=== PATIENT | female | born 1985 | race Hispanic/Latino ===

== ENCOUNTER 2019-01-12 19:18 | Observation (INO) | payer SELFPAY ==
[~2019-01-12 19:18] MED LIST: ISOVUE-370 76%-LOCM 1 ML ONE
[2019-01-12 19:52] LABS: #Monocytes 0.5 thou/uL (0.11-0.59); #Neutrophils 7.5 thou/uL (1.40-6.50); %Basophils 0.2 % (0.0-1.0); %Eosinophils 0.4 % (0.0-10.0); %Lymphocytes 19.9 % (21.0-51.0); %Monocytes 4.5 % (0.0-10.0); Hemoglobin 12.8 g/dL (12.0-16.0); Mean Corpuscular HGB CONC 33.4 g/dL (32.0-36.0); Mean Corpuscular Hemoglobin 27.8 pg (27.0-31.0); Mean Corpuscular Volume 83.2 fL (78.0-98.0); Platelet Count 307 thou/uL (130-400); RBC Distribution Width 12.4 % (11.5-14.5); White Blood Cell (WBC) Count 10.1 thou/uL (4.8-10.8)
[2019-01-12] MEDS ORDERED: Fentanyl 100 MCG/2 ML VIAL ONE (19:54)
[2019-01-12] MEDS ORDERED: Ketorolac Tromethamine 30 MG/ML VIAL ONE (19:55)
[2019-01-12] MEDS ORDERED: Ondansetron PF 4 MG/2 ML Vial ONE (19:55)
[2019-01-12 20:02] LABS: BHCG - Serum Negative (NEGATIVE); Pregs Control Background? CLEAR/WHITE (CLR/WHITE); Pregs Control Bar Appear? YES (CONTROL BAR)
[2019-01-12 20:13] LABS: ALT (SGPT) 266 U/L (8-55); AST (SGOT) 150 U/L (5-34); Albumin 4.2 g/dL (3.5-5.0); Alkaline Phosphatase 126 U/L (40-150); Anion Gap 16 mmol/L (10-20); BUN (Urea Nitrogen) 8 mg/dL (7.0-18.7); Bilirubin, Total 0.5 mg/dL (0.2-1.2); Calc. Creatinine Clearance 0 mL/min (70-130); Calcium 9.3 mg/dL (7.8-10.44); Carbon Dioxide 24 mmol/L (22-29); Chloride 100 mmol/L (98-107); Estimated GFR-MDRD Greater than 90; Globulin 2.7 g/dL (2.4-3.5); Glucose 264 mg/dL (70-105); Lipase 15 U/L (8-78); Potassium 3.5 mmol/L (3.5-5.1); Protein, Total 6.9 g/dL (6.0-8.3); Sodium 136 mmol/L (136-145)
[2019-01-12 20:14] LABS: Bilirubin Negative (Negative); Blood, Urine Negative (Negative); Clarity CLEAR (Clear); Glucose, Urine (Dipstick) >=1000 mg/dL (Negative); Leukocyte Negative (Negative); Nitrite Negative (Negative); Protein, Urine (Dipstick) Negative (Neg-Trace); Specific Gravity, Urine 1.021 (1.002-1.036); Urobilinogen 0.2 mg/dL (0.2-1.0); pH, Urine 5.5 (5.0-9.0)
--- NOTE | 2019-01-12 21:14 | CT ---
CONTRAST ENHANCED CT IMAGES ABDOMEN AND PELVIS: HISTORY: Abdominal pain. FINDINGS: The lung bases are unremarkable. No evidence of free intraperitoneal air seen. The liver and spleen are unremarkable. The gallbladder has been surgically removed. The pancreas is unremarkable. Adrenal glands and kidneys are unremarkable. The small bowel loops demonstrate no significant distention. There is an abnormally dilated appendix measuring up to 12 mm. Surrounding fat stranding is seen. Fin dings concerning for appendicitis. The colon is unremarkable. There is a prominent right ovarian cyst or cystic lesion. Correlate with follow-up elective sonograph y. IMPRESSION: Distended and inflamed appendix concerning for appendicitis. Findings discussed with Dr. Potter at 9:13 PM on 01/12/2019. Code CR Transcribed Date/Time: 01/12/2019 9:25 PM
[2019-01-12] MEDS ORDERED: Ondansetron PF 4 MG/2 ML Vial IVP PRN (21:36)
[2019-01-12] MEDS ORDERED: Morphine 4 MG/ML VIAL SLOW IVP PRN (21:36)
[2019-01-12] MEDS ORDERED: hydrALAZINE 20 MG/ML VIAL SLOW IVP PRN (21:36)
[2019-01-12] MEDS ORDERED: Ondansetron ODT 4 MG TAB PO PRN (21:36)
[2019-01-12] MEDS ORDERED: Ketorolac Tromethamine 30 MG/ML VIAL IVP PRN (21:39)
[2019-01-12] MEDS ORDERED: Ketorolac Tromethamine 30 MG/ML VIAL IVP SCH (21:45)
[2019-01-12] MEDS ORDERED: Acetaminophen 1,000 MG in Premix Bag 1 BAG IVPB SCH (21:45)
--- NOTE | 2019-01-12 21:59 | HP ---
HISTORY OF PRESENT ILLNESS: Katelyn Carrillo is a 33-year-old female who has had a several-hour history of right lower quadrant pain, presents to the emergency room, evaluated, found to have a white count of 10, hemoglobin of 12, comprehensive metabolic profile normal with mildly elevated transaminases. She underwent a CAT scan of the abdomen and pelvis revealing consistent with appendicitis. The patient has been admitted tonight for intravenous antibiotics and fluids and we will plan laparoscopic video appendectomy tomorrow. ALLERGIES: NONE. SOCIAL HISTORY: Tobacco, none. Alcohol, rarely. MEDICATIONS: None routinely. PAST MEDICAL HISTORY: Noncontributory. PAST SURGICAL HISTORY: Laparoscopic cholecystectomy. REVIEW OF SYSTEMS: A 10-point noncontributory. PHYSICAL EXAMINATION: VITAL SIGNS: Blood pressure 128/74, respiratory rate 18, heart rate 78. HEAD, EARS, EYES, NOSE AND THROAT: Unremarkable. LUNGS: Clear to auscultation. CARDIAC: Regular rate and rhythm without murmur or gallop. ABDOMEN: Soft, mild tenderness in right lower quadrant. No guarding or rebound. Positive Montes's. Positive Rovsing sign. EXTREMITIES: Unremarkable. LABORATORY DATA: As noted. ASSESSMENT: Acute appendicitis. PLAN: Laparoscopic video appendectomy tomorrow morning. Job ID: [id number]
[2019-01-12] MEDS ORDERED: Morphine 2 MG/ML SYRINGE ONE (23:32)
[2019-01-12 23:58] VITALS: BMI 32.1
[2019-01-13] MEDS: Piperacillin/Tazobactam 3.375 GM in Sodium Chloride 0.9% 100 ML IVPB SCH ×3 (00:01→08:06)
[2019-01-13] MEDS: Sodium Chloride 0.9% 1,000 ML IV SCH ×2 (00:20→08:05)
[2019-01-13] MEDS: Acetaminophen 1,000 MG in Premix Bag 1 BAG IVPB PRN ×2 (00:20→06:21)
[2019-01-13] MEDS: Morphine 4 MG/ML VIAL SLOW IVP PRN ×2 (02:32→06:28)
[2019-01-13] MEDS ORDERED: Ondansetron PF 4 MG/2 ML Vial ONE ×2 (07:58→12:59)
[2019-01-13] MEDS ORDERED: Bupivacaine HCl 0.5%/Epinephrine 1:200,000/PF 30 ml Vial ONE (08:36)
[2019-01-13] MEDS ORDERED: Fentanyl 100 MCG/2 ML VIAL ONE ×3 (08:39→10:19)
[2019-01-13] MEDS ORDERED: SUGAMMADEX SODIUM 200 MG/2 ML VIAL ONE (09:39)
[2019-01-13] MEDS ORDERED: Acetaminophen 500 MG TAB PO PRN (09:49)
[2019-01-13] MEDS ORDERED: traMADol HCl 50 MG TAB PO PRN ×2 (09:49)
[2019-01-13] MEDS ORDERED: Ibuprofen 600 MG TAB PO PRN (09:49)
[2019-01-13] MEDS ORDERED: Ondansetron HCl/PF 4 MG/2 ML Vial IVP PRN (10:01)
[2019-01-13] MEDS ORDERED: Promethazine HCl 25 MG/ML VIAL IM PRN (10:01)
[2019-01-13 11:05] VITALS: BP 109/71; TEMP 98.7
--- NOTE | 2019-01-13 11:37 | OP ---
DATE OF PROCEDURE: 01/13/2019 PREOPERATIVE DIAGNOSIS: Acute appendicitis. POSTOPERATIVE DIAGNOSIS: Acute appendicitis. PROCEDURE PERFORMED: Laparoscopic video appendectomy. ANESTHESIA: General, local 0.5% Marcaine with epinephrine 30 mL. DESCRIPTION OF PROCEDURE: The patient was taken to the operating room, where under general anesthesia, Rosales catheter placed at the beginning of the procedure, removed at the end. Abdomen was clipped of hair, prepared with ChloraPrep and draped in routine fashion. Local anesthetic 0.5% Marcaine with epinephrine was infiltrated in the skin and subcutaneous tissue about each port site. Infraumbilical incision was made. Pneumoperitoneum to 15 mmHg obtained with a Veress needle, replaced with a 5 port, laparoscope inserted. Right lateral subcostal incision was made and suprapubic incision was made, and a 5 mm and a 12 mm port placed respectively under laparoscopic visualization. Appendix acutely inflamed. Mesoappendix was taken down with the LigaSure to the stump of the appendix, divided the cecal stump with an Endo EMELIA blue load stapler. Appendix removed and submitted to Pathology. Good hemostasis was ensured. Area irrigated. Irrigant and pneumoperitoneum evacuated. Suprapubic fascia was approximated with 0 Vicryl suture. Skin incision was approximated with interrupted subdermal 4-[address] [place] glue applied. Job ID: [id number]
[2019-01-13] MEDS ORDERED: Lidocaine 2% PF 5 ML VIAL ONE (12:59)
[2019-01-13] MEDS ORDERED: Dexamethasone 20 MG/5 ML VIAL ONE (12:59)
[2019-01-13] MEDS ORDERED: PROPOFOL 200 MG/20 ML VIAL ONE (12:59)
[2019-01-13] MEDS ORDERED: Rocuronium Bromide 10 MG/ML (10ML VIAL) ONE (12:59)
[2019-01-13] MEDS ORDERED: Enoxaparin Sodium 40 MG/0.4 ML SYRINGE SC SCH (21:00)
--- NOTE | 2019-01-14 09:26 | DIS ---
DATE OF ADMISSION: 01/12/2019 DATE OF DISCHARGE: 01/13/2019 HOSPITAL COURSE: Katelyn Carrillo, 33-year-old, female presents to the emergency room with a 24-hour history of abdominal pain. Exam and CAT scan confirms appendicitis. She was hospitalized overnight with IV fluids an antibiotics, taken to the operating room the next day, 01/13/2019, for a laparoscopic video appendectomy after which she was discharged home. Follow up in my office in 2 to 3 weeks. Diet and activity as tolerated. No lifting restrictions. Home with Ultra p.r.n. pain and Zofran as needed. Job ID: [id number]
== END 2019-01-13 14:37 | disposition home or self-care (01) ==
LOC: ERS 19:18 → SURG A 21:36
PROVIDERS: ADMIT Specialist; ATTEND Specialist
PROC: 0DTJ4ZZ Resection of Appendix, Percutaneous Endoscopic Approach (ICD-10-PCS; principal; 2019-01-13)
DX: K35.80 Unspecified acute appendicitis (principal)
CPT/HCPCS: 36415; 74177; 80053; 81003; 83690; 84703; 85025; 88304; 96361; 96365; 96366; 96375; 96376; G0378; J0131; J0670; J1100; J1885; J2001; J2270; J2405; J2543; J2704; J3010; J3490

== ENCOUNTER 2019-05-04 15:30 | Inpatient (IN) | payer SELFPAY ==
[2019-05-04] MEDS ORDERED: Dextrose 5% in Water 1,000 ML IV PRN (18:50)
[2019-05-04] MEDS ORDERED: Insulin Regular 300 UNITS/3 ML VIAL SC PRN (18:50)
[2019-05-04] MEDS ORDERED: Acetaminophen 325 MG TAB PO PRN (18:50)
[2019-05-04] MEDS ORDERED: Dextrose 50% Abboject 50 ML SYRINGE SLOW IVP PRN (18:50)
[2019-05-04] MEDS ORDERED: Ondansetron ODT 4 MG TAB PO PRN (18:50)
[2019-05-04] MEDS ORDERED: Ondansetron PF 4 MG/2 ML Vial IVP PRN (18:50)
[2019-05-04] MEDS ORDERED: Calcium Carbonate 500 MG ChewTAB PO PRN (18:50)
[2019-05-04] MEDS ORDERED: Aspirin 81 mg Enteric Coated Tablet PO SCH (19:15)
[2019-05-04 19:50] LABS: ALT (SGPT) 24 U/L (8-55); AST (SGOT) 19 U/L (5-34); Albumin 4.2 g/dL (3.5-5.0); Alkaline Phosphatase 83 U/L (40-150); Anion Gap 10 mmol/L (10-20); BUN (Urea Nitrogen) 6 mg/dL (7.0-18.7); Bilirubin, Total 0.3 mg/dL (0.2-1.2); Calc. Creatinine Clearance 0 mL/min (70-130); Calcium 9.8 mg/dL (7.8-10.44); Carbon Dioxide 28 mmol/L (22-29); Chloride 103 mmol/L (98-107); Estimated GFR-MDRD Greater than 90; Glucose 140 mg/dL (70-105); Potassium 4.1 mmol/L (3.5-5.1); Sodium 137 mmol/L (136-145)
--- NOTE | 2019-05-04 19:51 | PDOC.FPROB ---
FMR OB H&P: HPI - History of Present Illness Chief Complaint: Newly Dx Pre-Gestational Diabetes History of Present Illness: 33yo at 12.2wks by 5.5wk and 9.5wk US (EDC 11/14/19) presenting as direct admit from [facility] for newly diagnosed uncontrolled pregestational diabetes. Pt was sent to routine labs and found to have A1C 10.0 on 04/30/19 and finger stick BG of >200. Pt currently asx. No history of GDM or pGDM. Denies any vaginal bleeding or discharge, no LOF, no contractions, no edema, HODGE, SOB, or dysuria. Primary Care Physician: Juliann FMR OB H&P: Current - Care : 4 Para: [id number] Gestational age: 12.2 Due date: 11/14/2019 Dating Criteria: 5.5 wk sono Course/Complications: Newly dx preg-gestational Diabetes - OB Labs Blood type: O RH: positive Antibody Screen: negative HIV: negative RPR: negative HepBsAg: negative Rubella: immune Quad screen: unknown Urine drug screen: not done Gonorrhea: unknown Chlamydia: unknown A1c: 10.0 GBS: unknown - First Trimester Ultrasound First trimester: activity noted and Cardiac motion noted Dates c/w 5.5 week sono FMR OB H&P: History - Past Medical History PMH: None. No chronic medical conditions outside of . - OB History OB History: 3 previous term . No NICU states, uncomplicated pregnancies and deliveries. - CAUSTIC PREPARER History CAUSTIC PREPARER History: Needs pap. - Surgical History Sx History: Cholecystectomy 2008, Appendectomy December 2018 - Social History Social History: Denies any EtOh, smoking or illicit drug use. Lives in [place] with , and 3 children. No pets at home. - Family History Family History: Uncles w/ diabetes. Mom with gDM. FMR OB H&P: Medications - Current Home Medications: Medication Instructions Recorded Confirmed Type Pnv No.95/Ferrous Fum/Folic AC 1 each PO DAILY 05/04/19 05/04/19 History [ Multivitamin Tablet] Allergies/Adverse Reactions: Allergies Allergy/AdvReac Type Severity Reaction Status Date / Time No Known Allergies Allergy Verified 05/04/19 22:27 FMR OB H&P: ROS - Review of Systems General: denies: fever/chills, weight/appetite/sleep changes, night sweats, fatigue Eyes: denies: eye pain, vision changes ENT: denies: nasal congestion, rhinorrhea, sinus pain/pressure Cardiovascular: denies: chest pain, palpitation, edema Respiratory: denies: cough, congestion, shortness of breath Gastrointestinal: denies: abdominal pain, vomiting, diarrhea, constipation Genitourinary (Female): denies: incontinence, dysuria, hematuria, polyuria, vaginal discharge, vaginal bleeding, contractions, vaginal pressure Musculoskeletal: denies: pain, tenderness Neurologic: denies: numbness, weakness Integumentary: denies: itching, rash Hematologic/Lymphatic: denies: prolonged or excessive bleeding Psychological: denies: depression, anxiety FMR OB H&P: Vital Signs - Maternal Vital signs: HR 94, BP 138/78, RR 18, T 98.9 Tried to listen to Heart tones with handheld doppler but unable 2/2 gestational age. FMR OB H&P: Physical Exam - Physical Exam General: NAD, awake, alert and oriented HEENT: EOMI, MMM Neck: supple, trachea midline Heart: RRR, normal S1/S2, no murmurs/rubs/gallops, pulses present, no edema General: CTAB, no respiratory distress, good air movement, no rales/rhonchi, no wheezing Abdomen: soft, gravid, non-tender, bowel sound present Musculoskeletal: normal gait and station, pulses present Neurological: no focal deficit Skin: no rash Lymphatic: no unusual bruising or bleeding Psychiatric: intact recent and remote memory, good judgement and insight, normal mood and affect FMR OB H&P: A/P - Problem List (1) Pregestational diabetes mellitus, modified White class B Current Visit: Yes Status: Acute Code(s): O24.319 - UNSP PRE-EXISTING DIABETES IN , UNSP TRIMESTER (2) First trimester Current Visit: Yes Status: Acute Code(s): Z34.91 - ENCNTR FOR SUPRVSN OF NORMAL PREG, UNSP, FIRST TRIMESTER Disposition: 33yo at 12.2wks by 5.5wk and 9.5wk US (EDC 11/14/19) presenting as direct admit from [facility] for newly diagnosed uncontrolled pregestational diabetes with A1C 10 on 04/30/19. #Uncontrolled Pregestational DMII, White Class B, newly diagnosed - A1C 10% - Will start regular insulin 13u prior to breakfast and 9u prior to dinner - Will start NPH 26U QAM and 9U QHS - Will check fasting AM glucose and 2 hour post prandial and adjust above regime as needed. - Encourage low carb snack for snack prior to bed - Placed on mild SSI - Will check TSH and obtain 24hr urine protein - Will need detailed anatomy scan with MFM. growth scans and weekly NST/ BPP starting at 32 weeks. - Will need outpt eye exam for newly diagnosed DM - Started 81mg ASA - Pipeline Gang Supervisor and DM education in AM #Obesity in - BMI 40 - Counseled on expected wt gain during this <20lbs - cook chill technician consulted #IUP, first trimester - management per above - continue routine care Diet: CC VTE: Ambulation [facility] - Attending - Attending Attestation Date/Time: 05/04/19 8614 I personally evaluated the patient and discussed the management with Dr. Lyn Luciano on 05/04/2019 I agree with the History, Examination, Assessment and Plan documented above with any addition or exceptions noted below - 33yo at 12.2wks by 5.5wk and 9.5wk US (EDC 11/14/19) presenting as direct admit from [facility] for newly diagnosed pregestational diabetes. Pt was sent to routine labs and found to have A1C 10.0 on 04/30/19 and finger stick BG of >200. No h/o GDM in prior pregnancies or macrosomic infants. (+)FH of uncle with type 2 DM. Denies any polyuria/polydipsia. PMH/PSH/Meds/SH reviewed and agree with resident's documentation. T98.9 P94 BP 138/78 97% RA Exam repeated by me and agree with resident's findings. Labs: Iw=006, K=4.1, Fs=640, CO2=28, BUN/Cr=6/0.64, Gluc= 140, AST/ALT=19/24, TSH=1.2316 A/P: 1) Newly diagnosed pregestational DM - started on ADA diet; cook chill technician consult placed for education. Monitor fasting and post-prandial glucose. Sliding scale to determine need for insulin.
[2019-05-04 20:01] LABS: Globulin 3.1 g/dL (2.4-3.5); Protein, Total 7.2 g/dL (6.0-8.3)
[2019-05-04] MEDS: Insulin Regular 300 UNITS/3 ML VIAL SC SCH (20:26)
[2019-05-04] MEDS ORDERED: NPH, Human Insulin Isophane 300 UNIT/3 ML VIAL SC SCH (21:00)
[2019-05-04] MEDS ORDERED: Sodium Chloride 0.9% 10 ML ONE (21:40)
[2019-05-05 06:21] LABS: Anion Gap 11 mmol/L (10-20); BUN (Urea Nitrogen) 6 mg/dL (7.0-18.7); Calc. Creatinine Clearance 176 mL/min (70-130); Calcium 9.2 mg/dL (7.8-10.44); Carbon Dioxide 24 mmol/L (22-29); Chloride 102 mmol/L (98-107); Estimated GFR-MDRD Greater than 90; Glucose 152 mg/dL (70-105); Potassium 3.4 mmol/L (3.5-5.1); Sodium 134 mmol/L (136-145)
--- NOTE | 2019-05-05 07:04 | PDOC.OBAPN ---
FMR OB AP PN: Sub - Interval History Hospital Day: 1 Chief Complaint: Uncontrolled pregestational DMII new dx Indentification: 33yo at 12.3wks by 5.5wk and 9.5wk US (EDC 11/14/19). FMR OB AP PN: Obj - Maternal Vital signs: BP: 106/68 HR: 98.5 RR: 85 Tmax: 16 Pox: 97% on RA Wt: 82kg - Urine output I&O: 05/04/19 05/05/19 05/06/19 06:59 06:59 06:59 Intake Total 490 Output Total 1150 Balance -660 FMR OB AP PN: Exam - Physical Exam General: NAD, awake, alert and oriented HEENT: normocephalic and atraumatic, MMM, conjunctiva clear Neck: supple, trachea midline Heart: RRR, no murmurs/rubs/gallops General: CTAB, no respiratory distress Abdomen: soft, non-tender Musculoskeletal: pulses present, no misalignment/asymmetry, no atrophy Neurological: no focal deficit Skin: no rash, good tugor Psychiatric: intact recent and remote memory, good judgement and insight, normal mood and affect FMR OB AP PN: Data - Labs Lab results: Laboratory Results - last 24 hr 05/04/19 05/04/19 05/04/19 19:22 19:22 23:07 Sodium 137 Potassium 4.1 Chloride 103 Carbon Dioxide 28 Anion Gap 10 BUN 6 L Creatinine 0.64 Estimated GFR (MDRD) Greater than 90 Glucose 140 H POC Glucose 110 Calcium 9.8 Total Bilirubin 0.3 AST 19 ALT 24 Alkaline Phosphatase 83 Serum Total Protein 7.2 Albumin 4.2 Globulin 3.1 Albumin/Globulin Ratio 1.4 TSH 3rd Generation 1.2316 05/05/19 05/05/19 05:45 05:47 Sodium 134 L Potassium 3.4 L Chloride 102 Carbon Dioxide 24 Anion Gap 11 BUN 6 L Creatinine 0.60 Estimated GFR (MDRD) Greater than 90 Glucose 152 H POC Glucose 142 H Calcium 9.2 Total Bilirubin AST ALT Alkaline Phosphatase Serum Total Protein Albumin Globulin Albumin/Globulin Ratio TSH 3rd Generation FMR OB AP PN: A/P Disposition: 33yo at 12.3wks by 5.5wk and 9.5wk US (EDC 11/14/19) presenting as direct admit from [facility] for newly diagnosed uncontrolled pregestational diabetes Subjective: No overnight events. Slept well. Had a salad around 8:30pm last night when she arrived at her room. No evening snack. Reports she eats a lot of corn tortillas and sometimes flour tortillas, rice and beans for meals. Uncontrolled Pregestational DMII, White Class B, newly diagnosed - A1C 10% - Continue regular insulin 13u prior to breakfast & 9u prior to dinner - Continue NPH 26U QAM and increase NPH qHS from 9U to 11U - Continue to monitor fasting AM glucose & 2 hour post prandial. - Encourage low carb snack for snack prior to bed - Collecting 24hr urine protein. TSH nml - Will need detailed anatomy scan with MFM. growth scans and weekly NST/ BPP starting at 32 weeks. - Will need detailed eye exam - Continue daily ASA 81mg - Lever Operator counseled and DM education Obesity - BMI 40 - Counseled on expected wt gain during this <20lbs - Lever Operator consulted 1T sIUP - Continue routine care - Continue PNV Discussion: Date/Time: 05/05/19 0701 This H&P was discussed with Dr. Palmer who agree with the above documentation and plan.
[2019-05-05] MEDS ORDERED: Insulin Regular 300 UNITS/3 ML VIAL SC SCH (07:30)
[2019-05-05] MEDS ORDERED: NPH, Human Insulin Isophane 300 UNIT/3 ML VIAL SC SCH ×2 (08:00→21:00)
[2019-05-05] MEDS: Prenatal Vitamin 1 TAB PO SCH (10:55)
[2019-05-05] MEDS: Aspirin 81 mg Enteric Coated Tablet PO SCH (10:55)
[2019-05-05] MEDS: Insulin Regular 300 UNITS/3 ML VIAL SC SCH (19:01)
[2019-05-05 20:38] LABS: Urine Total Volume 2350 mL (600-1600)
[2019-05-05 20:58] LABS: Protein, Urine Less than 10 mg/dL (1-14)
[2019-05-05] MEDS ORDERED: HumaLOG 300 UNITS/3 ML VIAL SC PRN (21:57)
[2019-05-05] MEDS: Insulin Regular 300 UNITS/3 ML VIAL SC PRN (22:12)
[2019-05-06] MEDS ORDERED: NPH, Human Insulin Isophane 300 UNIT/3 ML VIAL SC SCH ×3 (06:42→21:00)
--- NOTE | 2019-05-06 06:49 | PDOC.FM ---
- Subjective Subjective: No overnight events. Feeling well. Met with karate instructor yesterday. Interested in diabetic education and had many questions about carbs and meals. She has been preforming her own glucose checks and insulin injections. Denies any pain, n/v. No complaints. - Objective MAR Reviewed: Yes Vital Signs & Weight: Vital Signs (12 hours) Temp Pulse Resp BP Pulse Ox 05/06/19 06:29 98.5 F 85 16 103/54 L 05/05/19 19:54 98.2 F 85 20 114/55 L 97 Weight Weight 82.1 kg I&O: 05/04/19 05/05/19 05/06/19 06:59 06:59 06:59 Intake Total 490 Output Total 1150 Balance -660 Result Diagrams: 05/05/19 05:45 Phys Exam - Physical Examination Constitutional: NAD HEENT: moist MMs Neck: supple Respiratory: no wheezing, clear to auscultation bilateral Cardiovascular: RRR, no significant murmur Gastrointestinal: soft, non-tender, positive bowel sounds Musculoskeletal: no edema, pulses present Neurological: non-focal, moves all 4 limbs Psychiatric: normal affect, A&O x 3 Skin: no rash, normal turgor Dx/Plan (1) First trimester Code(s): Z34.91 - ENCNTR FOR SUPRVSN OF NORMAL PREG, UNSP, FIRST TRIMESTER Status: Acute (2) Pregestational diabetes mellitus, modified White class B Code(s): O24.319 - UNSP PRE-EXISTING DIABETES IN , UNSP TRIMESTER Status: Acute - Plan Plan: Uncontrolled Pregestational DMII, White Class B, newly diagnosed - A1C 10% - Adjusted regular insulin to 16u prior to breakfast & 11u prior to dinner - Adjusted NPH 29U QAM and increase NPH qHS to 13 - Continue to monitor fasting AM glucose & 2 hour post prandial. - Encourage low carb snack for snack prior to bed - 24hr urine protein <10. TSH nml - Will need detailed anatomy scan with MFM. growth scans and weekly NST/ BPP starting at 32 weeks. - Will need detailed eye exam - Continue daily ASA 81mg - Bench Patternmaker Metal counseled and DM education Obesity - BMI 40 - Counseled on expected wt gain during this <20lbs - Bench Patternmaker Metal consulted 1T sIUP - Continue routine care - Continue PNV Dispo: Possibly late tonight if improvement in BG throughout the day.
[2019-05-06] MEDS ORDERED: Insulin Regular 300 UNITS/3 ML VIAL SC SCH ×2 (07:30→16:30)
[2019-05-06] MEDS: Aspirin 81 mg Enteric Coated Tablet PO SCH (08:41)
[2019-05-06] MEDS: Prenatal Vitamin 1 TAB PO SCH (08:41)
[2019-05-06] MEDS: Insulin Regular 300 UNITS/3 ML VIAL SC PRN ×3 (11:10→21:21)
--- NOTE | 2019-05-06 16:54 | EKG ---
Test Reason : STAT Blood Pressure : / mmHG Vent. Rate : 073 BPM Atrial Rate : 073 BPM P-R Int : 114 ms QRS Dur : 086 ms QT Int : 402 ms P-R-T Axes : 016 033 013 degrees QTc Int : 442 ms Normal sinus rhythm Normal ECG No previous ECGs available Confirmed by DR. Ynf RUDOLPH ([id number]) on 05/06/2019 4:54:42 PM Referred By: Confirmed By:DR. Yfn RUDOLPH
--- NOTE | 2019-05-07 06:59 | PDOC.FM ---
- Subjective Subjective: Feeling well this morning. No overnight events. Denies abdominal pain, vaginal bleeding. Has been doing her own glucose checks and insulin injections. - Objective MAR Reviewed: Yes Vital Signs & Weight: Vital Signs (12 hours) Temp Pulse Resp BP Pulse Ox 05/07/19 04:00 98.3 F 87 16 98/53 L 97 05/07/19 00:10 98.5 F 71 16 99/56 L 96 05/06/19 19:54 98.9 F 79 16 111/56 L 97 Weight Weight 82.1 kg I&O: 05/05/19 05/06/19 05/07/19 06:59 06:59 06:59 Intake Total 490 Output Total 1150 Balance -660 Result Diagrams: 05/05/19 05:45 Phys Exam - Physical Examination Constitutional: NAD HEENT: moist MMs Neck: supple Respiratory: no wheezing, clear to auscultation bilateral Cardiovascular: RRR, no significant murmur Gastrointestinal: soft, non-tender Musculoskeletal: no edema, pulses present Neurological: moves all 4 limbs Psychiatric: normal affect, A&O x 3 Skin: no rash, normal turgor Dx/Plan (1) First trimester Code(s): Z34.91 - ENCNTR FOR SUPRVSN OF NORMAL PREG, UNSP, FIRST TRIMESTER Status: Acute (2) Pregestational diabetes mellitus, modified White class B Code(s): O24.319 - UNSP PRE-EXISTING DIABETES IN , UNSP TRIMESTER Status: Acute - Plan Plan: Uncontrolled Pregestational DMII, White Class B, newly diagnosed - A1C 10% - Adjusted regular insulin to 19u prior to breakfast & 13u prior to dinner - Adjusted NPH 33U QAM and increase NPH qHS to 15U - Continue to monitor fasting AM glucose & 2 hour post prandial. - Encourage low carb snack for snack prior to bed - 24hr urine protein <10. TSH nml - Will need detailed anatomy scan with MFM. growth scans and weekly NST/ BPP starting at 32 weeks. - Will need detailed eye exam - Continue daily ASA 81mg - Professor Of Anthropology counseled and DM education Obesity - BMI 40 - Counseled on expected wt gain during this <20lbs - Professor Of Anthropology consulted 1T sIUP - Continue routine care - Continue PNV
[2019-05-07] MEDS ORDERED: Insulin Regular 300 UNITS/3 ML VIAL SC SCH ×2 (07:30→16:30)
[2019-05-07] MEDS ORDERED: NPH, Human Insulin Isophane 300 UNIT/3 ML VIAL SC SCH ×2 (07:58→08:00)
[2019-05-07] MEDS: Prenatal Vitamin 1 TAB PO SCH (08:12)
[2019-05-07] MEDS: Aspirin 81 mg Enteric Coated Tablet PO SCH (08:12)
[2019-05-07] MEDS: Insulin Regular 300 UNITS/3 ML VIAL SC PRN (10:35)
[2019-05-07 12:14] VITALS: BP 109/65; TEMP 97.8
--- NOTE | 2019-05-08 05:27 | DIS ---
DATE OF ADMISSION: 05/04/2019 DATE OF DISCHARGE: 05/07/2019 CONSULTS: None. PROCEDURES: None. PRIMARY DIAGNOSES: 1. Uncontrolled gestational type 2 diabetes, newly diagnosed White class B. 2. Obesity. 3. First-trimester single intrauterine . DISCHARGE MEDICATIONS: 1. Aspirin 81 mg daily. 2. Insulin NPH 15 at bedtime. 3. NPH 33 units at 0800. 4. Regular insulin 19 units at 0730. 5. Regular insulin 13 units at 1630. 6. vitamin. DISCONTINUED MEDICATIONS: None. HISTORY OF PRESENT ILLNESS AND HOSPITAL COURSE: Ms. Carrillo is a 33-year-old G4, P3-0-0-3 at 12.4 weeks by 5.5 week and 9.5 week ultrasound. Estimated due date 11/14/2019. The patient of [place] [facility] was found to have a hemoglobin A1c at 10%. Patient has no known history of diabetes. She was directly admitted to start insulin and to titrate. She was given education on diabetes as well as diabetic diet. She was able to learn how to administer her own insulin and check her glucose fasting and 2-hour postprandials. Her blood glucoses were fairly well controlled at discharge with a normal fasting of 101, abnormal 2-hour postprandial breakfast 181 (this was one of the higher 2-hour breakfast postprandials), and 2-hour postprandial lunch of 117. Discussed blood glucose goals with the patient. She expressed understanding. Recommended close followup to further titrate insulin. DISPOSITION: Stable. DISCHARGE INSTRUCTIONS: 1. Location: Home. 2. Diet: Carb consistent. 3. Activity: No restrictions. 4. Followup: With Dr. Humphreys, [place] [facility] within 1 week. Job ID: [id number]
[2019-05-08] MEDS ORDERED: NPH, Human Insulin Isophane 300 UNIT/3 ML VIAL SC SCH ×2 (08:00→15:00)
== END 2019-05-07 16:12 | disposition home or self-care (01) | DRG 833 ==
LOC: EDSTATUS 15:31 → PREOBSVTOIN 18:35 → OBSVTOIN 18:37 → 3SE 18:37
PROVIDERS: ADMIT Family Medicine; ATTEND Family Medicine
DX: O24.419 Gestational diabetes mellitus in pregnancy, unspecified control (principal); O99.211 Obesity complicating pregnancy, first trimester; E66.9 Obesity, unspecified; Z3A.12 12 weeks gestation of pregnancy
CPT/HCPCS: 36415; 36416; 80048; 80053; 84156; 84443; 93005; 93010; J1815

== ENCOUNTER 2019-06-11 19:21 | Inpatient (IN) | payer OTHER, SELFPAY ==
[2019-06-11 20:02] VITALS: BMI 34.9
[2019-06-11] MEDS ORDERED: Ondansetron PF 4 MG/2 ML Vial IVP PRN (20:29)
[2019-06-11] MEDS ORDERED: Promethazine HCl 25 MG/ML VIAL IM PRN (20:29)
[2019-06-11] MEDS ORDERED: Acetaminophen 500 MG TAB PO PRN (20:29)
[2019-06-11] MEDS ORDERED: FLU VACC QS2019-20(6MOS UP)/PF 60 MCG/0.5 ML SYRINGE IM ONE (21:00)
--- NOTE | 2019-06-11 21:21 | PDOC.OBTPN ---
FMR OB Triage PN:Sub - Interval History Chief Complaint: IUFD Indentification: 33yo FMR OB Triage PN:Obj - Maternal Vital signs: BP: [] HR: [] RR: [] Tmax: [] Pox: []% on [] Wt: [] - Heart Tones Baseline: 0 Variability: absent - Pain Management Pain scale: 0 FMR OB Triage PN:Exam - Physical Exam General: NAD, awake, alert and oriented HEENT: normocephalic and atraumatic, EOMI, grossly normal vision, grossly normal hearing Neck: FROM Heart: RRR General: no respiratory distress, good air movement, no wheezing Abdomen: soft, gravid, non-tender Musculoskeletal: FROM in all four extremities Neurological: cranial nerves II through XII intact Skin: no rash, no jaundice Lymphatic: no unusual bruising or bleeding, no purpura Psychiatric: intact recent and remote memory, good judgement and insight, normal mood and affect FMR OB Triage PN:A/P - Problem List (1) Intrauterine before 20 weeks of gestation Current Visit: Yes Status: Acute Code(s): O02.1 - MISSED (2) Second trimester Current Visit: Yes Status: Acute Code(s): Z34.92 - ENCNTR FOR SUPRVSN OF NORMAL PREG, UNSP, SECOND TRIMESTER (3) Pregestational diabetes mellitus, modified White class B Current Visit: No Status: Acute Code(s): O24.319 - UNSP PRE-EXISTING DIABETES IN , UNSP TRIMESTER Discussion: Date/Time: 06/11/192119 This H&P was discussed with [] and [] who agree with the above documentation and plan.
--- NOTE | 2019-06-11 21:29 | PDOC.FPROB ---
FMR OB H&P: HPI - History of Present Illness Chief Complaint: IUFD Indentification: 33yo History of Present Illness: 33yo at 17.5wks by 5.5wk and 9.5wk US (EDC 11/14/19) presenting to L&D for induction of labor for IUFD. [place] [facility] [place] At which time heart tones could not be identified. Pt had a follow up US while there which confirmed not cardiac activity and no movement. Pt denied any inciting events including trauma, recent illness, vaginal bleeding/discharge. She did note that she was recently diagnosed with pregestational diabetes and started on insulin after her A1c was found to be ~ 10. Denies any fever, chills, abdominal pain, contractions at this time. Primary Care Physician: Dr. Humphreys FMR OB H&P: Current - Care : G4 Para: [id number] Gestational age: 17.5 Due date: 11/14/19 Dating Criteria: 5.5wk and 9.5wk US Course/Complications: Pregestational DM - A1c 10 - OB Labs Blood type: O RH: positive Antibody Screen: negative HIV: negative RPR: negative HepBsAg: negative Rubella: immune A1c: 10 FMR OB H&P: History - Past Medical History PMH: Pregestational DM White Class B - OB History OB History: 3 term vaginal deliveries - Surgical History Sx History: Cholecystectomy, appendectomy - Social History Social History: No alcohol, tobacco, or illicit drugs FMR OB H&P: Medications - Current Home Medications: Medication Instructions Recorded Confirmed Type Aspirin [Ecotrin Low Strength] 81 mg PO DAILY #30 tab 05/06/19 06/11/19 Rx Vitamin 1 tab PO DAILY tab 05/06/19 06/11/19 Rx NPH, Human Insulin Isophane 15 unit SC HS #1 vial 05/07/19 06/11/19 Rx [HumuLIN N] Insulin Regular [HumuLIN R Vial] 15 unit SC 1630 06/11/19 06/11/19 History Insulin Regular [HumuLIN R Vial] 21 unit SC 0730 06/11/19 06/11/19 History NPH, Human Insulin Isophane 37 unit SC 0800 06/11/19 06/11/19 History [HumuLIN N] Allergies/Adverse Reactions: Allergies Allergy/AdvReac Type Severity Reaction Status Date / Time No Known Allergies Allergy Verified 05/04/19 22:27 FMR OB H&P: ROS - Review of Systems General: denies: fever/chills, weight/appetite/sleep changes Eyes: denies: vision changes, double vision Cardiovascular: denies: chest pain, edema Respiratory: denies: cough, shortness of breath Gastrointestinal: denies: abdominal pain, nausea, vomiting Genitourinary (Female): denies: dysuria, vaginal discharge, vaginal pain, vaginal bleeding, contractions, vaginal pressure Integumentary: denies: rash, lesions Psychological: denies: depression, anxiety, other FMR OB H&P: Physical Exam - Physical Exam General: NAD, awake, alert and oriented HEENT: normocephalic and atraumatic, grossly normal vision, grossly normal hearing Neck: FROM Heart: RRR, normal S1/S2 General: CTAB, no respiratory distress Abdomen: soft, gravid, bowel sound present Musculoskeletal: pulses present, FROM in all four extremities Neurological: sensation to pain,touch and proprioception grossly normal Skin: no rash, capillary refill <2 seconds Lymphatic: no unusual bruising or bleeding, no purpura, no petechia Psychiatric: intact recent and remote memory, good judgement and insight, normal mood and affect FMR OB H&P: Results - Imaging Imaging: Limited US performed: Confirmed no cardiac activity or motion FMR OB H&P: A/P - Problem List (1) Intrauterine before 20 weeks of gestation Current Visit: Yes Status: Acute Code(s): O02.1 - MISSED Assessment and Plan: Cytotec induction for delivery of IUFD, initial dose 600mcg. Will monitor for progression, repeat if needed. -Hemagram and Type/Cross ordered -US confirmed IUFD prior to induction (2) Second trimester Current Visit: Yes Status: Acute Code(s): Z34.92 - ENCNTR FOR SUPRVSN OF NORMAL PREG, UNSP, SECOND TRIMESTER (3) Pregestational diabetes mellitus, modified White class B Current Visit: No Status: Acute Code(s): O24.319 - UNSP PRE-EXISTING DIABETES IN , UNSP TRIMESTER Discussion: Date/Time: 06/11/192126 This H&P was discussed with Dr. Pang and Dr. Strong who agree with the above documentation and plan. Addendum - Attending - Attending Attestation Date/Time: 06/11/19 3902 I personally evaluated the patient and discussed the management with Dr. Freed I agree with the History, Examination, Assessment and Plan documented above with any addition or exceptions noted below - 33 yo @ 17.5 weeks with pregestational DM admitted for induction of demise. Patient seen for routine visit today and unable to obtain heart tones. USG performed which confirmed demise. Afebrile VSS SVE per resident- closed, A/P: 1) IUFD @ 17.5 weeks- cytotec placed at 2215.May have epidural when desired.
[2019-06-11 21:36] LABS: Hemoglobin 13.1 g/dL (12.0-16.0); Mean Corpuscular HGB CONC 33.6 g/dL (32.0-36.0); Mean Corpuscular Hemoglobin 30.2 pg (27.0-31.0); Mean Corpuscular Volume 89.8 fL (78.0-98.0); Mean Platelet Volume 7.2 fL (7.4-10.4); Platelet Count 302 thou/uL (130-400); RBC Distribution Width 13.3 % (11.5-14.5); Red Blood Cell (RBC) Count 4.35 mill/uL (4.20-5.40); White Blood Cell (WBC) Count 8.6 thou/uL (4.8-10.8)
[2019-06-11] MEDS ORDERED: Misoprostol 200 MCG TAB ONE (22:06)
[2019-06-11] MEDS ORDERED: Misoprostol 100 MCG TAB VAG SCH (22:15)
--- NOTE | 2019-06-11 22:51 | ULT ---
LIMITED OB ULTRASOUND: 06/11/19 HISTORY: demise. No heart tones were detected in physician's office today. COMPARISON: None. FINDINGS: There is evidence of a single intrauterine gestation in breech presentation. Cardiac Doppler demonstr ates no heart tones. Cardiac Doppler was performed on several occasions, but again no hea rt tones are seen. Placenta is located anteriorly, and there is a normal amount of amniotic fluid. IMPRESSION: Single intrauterine gestation without heart tones detected. Findings are suggestive of de mise. POS: RACH
[2019-06-11] MEDS: Misoprostol 200 MCG TAB VAG SCH (23:08)
[2019-06-12] MEDS ORDERED: Butorphanol Tartrate 1 MG/ML VIAL ONE (02:37)
[2019-06-12] MEDS: Butorphanol Tartrate 1 MG/ML VIAL SLOW IVP PRN ×2 (02:40→05:55)
[2019-06-12] MEDS: Misoprostol 200 MCG TAB VAG SCH (07:23)
--- NOTE | 2019-06-12 11:06 | PDOC.OPDEL ---
OB Operative/Delivery Note Delivery Dr/Surgeon: Bird Humphreys Assist: Bird Pre-Delivery Diagnosis: medically indicated induction ( Demise 17.5 weeks) Procedure/Post Delivery Dx: spontaneous vaginal delivery Weeks gestation: 17 (17.5) Anesthesia: none - Additional Findings/Plan Placenta delivered: spontaneous Repaired Obstetrical Laceration: none Estimated blood loss: 50mL Compilations/Other Findings: IUFD/Missed Ab @ 17.5 weeks gestation. No complications TOD 0820. Placenta delivered intact. No bleeding. Delivering Physician: Juliann Attending Bird Procedure: Spontaneous Vaginal Delivery Anesthesia: None EBL: 50ml Pre-op Diagnosis: 1. Missed AB @ 17.5 weeks gestation 2. White Class B DM Post-op Diagnosis: 1. Missed AB, delivered 2. Possible Cystic Hygroma Indications: A 33y/o female -> 3013 @ 17.5 weeks by 5.5/9.5 sono presents for IOL 2/2 missed ab. Delivery Note: This is 33yo F @ 17.5wks who delivered a nonviable infant (likely male; however, not definitive based on gross examination). Following an uneventful antepartum course, a fetus was delivered over intact perineum with amniotic sac intact. Placenta delivered spontaneously intact. Placenta sent for pathology review. Fundal massage was performed and the fundus was firm. The cervix and vagina were inspected and found to be free of lacerations. Gross examination of fetus revealed cystic lesion on posterior nuchal segment/occiput with serosanguinous appearing fluid. Fetus 81 grams. Family has requested be baptized by simulation analyst [employer] flat surf[employer] and fetus to be buried in [place] per families request. No complications PP. Will monitor for s/ s of bleeding and likely DC to home later today. Post delivery plan: routine recovery
== END 2019-06-12 13:49 | disposition home or self-care (01) | DRG 779 ==
LOC: L&D 19:21
PROVIDERS: ADMIT Family Medicine; ATTEND Family Medicine
PROC: 3E033VJ Introduction of Other Hormone into Peripheral Vein, Percutaneous Approach (ICD-10-PCS; principal; 2019-06-11)
DX: O02.1 Missed abortion (principal); O24.312 Unspecified pre-existing diabetes mellitus in pregnancy, second trimester; Z3A.17 17 weeks gestation of pregnancy; Z79.4 Long term (current) use of insulin; E11.9 Type 2 diabetes mellitus without complications
CPT/HCPCS: 36415; 36416; 76815; 85027; 86850; 86900; 86901; 88305; J0595